=== PATIENT | female | born 1945 | race Caucasian/White ===

== ENCOUNTER 2020-01-27 12:12 | Inpatient (IN) | payer MEDICARE, OTHER ==
[~2020-01-27] VITALS: Ht 154.9 cm; Wt 59.3 kg
[~2020-01-27 12:12] MED LIST changes: -Allegra-D 24 H1 EACH PO; -Amoxicillin500 MG PO; -CARVEDILOL12.5 MG PO; -DYAZIDE 37.5-21 EACH PO; -FURO20 PO; -NORVASC10 MG PO; -POTA10T PO
[2020-01-27] MEDS ORDERED: CARVEDILOL12.5 MG PO (13:07)
[2020-01-27] MEDS ORDERED: FURO20 PO (13:07)
[2020-01-27] MEDS ORDERED: DYAZIDE 37.5-21 EACH PO (13:08)
[2020-01-27] MEDS ORDERED: POTA10T PO (13:09)
[2020-01-27] MEDS ORDERED: NORVASC10 MG PO (13:09)
[2020-01-27 13:21] LABS: Free Thyroxine 1.64 ng/dL (0.70-1.60); Magnesium, Blood 1.8 mg/dL (1.6-2.4)
[2020-01-27 13:23] LABS: Phosphorus, Blood 2.4 mg/dL (2.5-4.9); Thyroid Stimulating Hormone 0.659 uIU/mL (0.360-4.800)
[2020-01-27] MEDS ORDERED: Allegra-D 24 H1 EACH PO (13:33)
[2020-01-27 13:35] LABS: Source, Urine Clean Catch
[2020-01-27 13:37] LABS: Bilirubin, Urine Neg (Neg); Blood, Urine 1+ (Neg); Glucose Qualitative, Urine Neg (Neg); Ketones, Urine 3+ (Neg); Leukocyte Esterase, Urine 3+ (Neg); Nitrite, Urine Neg (Neg); Protein, Urine 1+ (Neg); Urobilinogen, Urine NORM (Normal)
[2020-01-27 13:43] LABS: Appearance, Urine Hazy (Clear); Color, Urine Yellow (P-Yellow)
[2020-01-27 13:45] LABS: Bacteria Many /hpf; Mucus Light (0-Heavy); Red Blood Cells, Urine 0-2 /hpf (0-2); Squamous Epithelial Cells Rare /hpf (Few); White Blood Cells, Urine 25-50 /hpf (0-5)
--- NOTE | 2020-01-27 18:24 | NUR ---
PT ADMIITED FROM ERD @1500 AND IS HERE FOR ALTERED MENTAL STATUS, PT TRANSFERRED VIA GURNEY. PT ALERT AND ORIENTED X2 WITH CONFUSION. HRR NSR AT 70'S NO CHEST PAIN REPORTED, LUNGS CLEAR BILAT SATS ABOVE 90% ON ROOMAIR. PT SBA VIA WALKER TO TRANSFER TO BSC, CONTINENT OF BOWEL AND BLADDER. ORDER FOR IV FLUID NSS COMPLETED WITH [address] VICK WAS CONSULTED, AGREED TO STOP NORMAL SALINE AND ADMINISTER 20 MEQ OF POTASSIUM IN 1000ML BAG INSTEAD, TO RUN AT 125MLS/HR. PT ON IV ABO FOR POSS UTI SEPSIS AWAITING FOR CULTURE RESULT. PT CURRENTLY IN BED CALL LIGHTS WITHIN REACH, WILL MONITOR.
--- NOTE | 2020-01-28 05:30 | NUR ---
END OF SHIFT SUMMARY NO ACUTE CHANGES THIS SHIFT. VSS. PT HAS BECOME MORE ALERT AND ORIENTED THIS SHIFT THE NIGHT PROGRESSED. THERE APPEARS TO POSSIBLY BE SOME UNDERLYING FORGETFULNESS HOWEVER. FLUIDS WITH KCL CONTINUE TO INFUSE PER EMAR. ORDERS RECEIVED AND ADMINISTERED FOR MELATIONIN FOR PT REPORTING INSOMNIA. POST ADMIN, PT HASBEEN RESTING T/O THE SHIFT. HAS NOT BEEN IMPULSIVE. WILL CONTINUE TO MONITOR UNTIL SHIFT CHANGE.
[2020-01-28 06:38] LABS: BASOPHILS ABSOLUTE AUTO 0.02 K/mm3 (0.00-0.23); BASOPHILS PERCENT AUTO 0 % (0-2); EOSINOPHILS ABSOLUTE AUTO 0.01 K/mm3 (0.00-0.68); EOSINOPHILS PERCENT AUTO 0 % (0-6); Hematocrit 38.1 % (33.0-51.0); Hemoglobin 13.9 g/dL (11.5-16.0); IMMATURE GRAN ABSOLUTE AUTO 0.03 K/mm3 (0.00-0.10); IMMATURE GRAN PERCENT AUTO 0 % (0-1); LYMPHOCYTES ABSOLUTE AUTO 2.74 K/mm3 (0.84-5.20); LYMPHOCYTES PERCENT AUTO 32 % (21-46); MONOCYTES PERCENT AUTO 14 % (4-13); Mean Corpuscular HGB 34.8 pg (26.0-34.0); Mean Corpuscular HGB Conc 36.5 g/dL (31.5-36.5); Mean Platelet Volume 9.9 fL (9.1-12.4); NEUTROPHILS ABSOLUTE AUTO 4.57 K/mm3 (1.96-9.15); NEUTROPHILS PERCENT AUTO 53 % (41-73); Platelet Count 228 K/mm3 (150-400); RDW Coefficient Variation 12.2 % (11.7-14.2); RDW Standard Deviation 42.4 fL (35.1-46.3); Red Blood Cell Count 3.99 M/mm3 (3.80-5.20); White Blood Cell Count 8.57 K/mm3 (4.00-11.30)
[2020-01-28 06:42] LABS: Mean Corpuscular Volume 96 fL (80-100)
[2020-01-28 07:05] LABS: Magnesium, Blood 2.1 mg/dL (1.6-2.4)
[2020-01-28 07:07] LABS: Albumin, Blood 3.3 g/dL (3.4-5.0); Anion Gap 8 mmol/L (6-16); Blood Urea Nitrogen 20 mg/dL (8-24); Bun/Creatinine Ratio 29.2 (12.0-20.0); CO2, Blood 24 mmol/L (21-32); Calcium, Blood 8.6 mg/dL (8.5-10.1); Chloride, Blood 98 mmol/L (98-108); Creatinine, Blood 0.69 mg/dL (0.40-1.00); Glomerular Filtration Rate >60 (60-); Glucose, Blood 82 mg/dL (70-99); Potassium, Blood 3.4 mmol/L (3.5-5.5)
[2020-01-28 07:18] LABS: Sodium, Blood 130 mmol/L (136-145)
--- NOTE | 2020-01-28 14:27 | NUR ---
DR VICK AT BEDSIDE. PT ANSWERING QUESTIONS APPROPRIATELY, DR VICK IS CHANGING PT STATUS TO MEDICAL WITHOUT TELE
--- NOTE | 2020-01-28 15:52 | NUR ---
PT WAS MAD MEDICAL STATUS WITHOU TELE PER DR VICK, PT TOLERATED AN APPROX 200 FOOT AMBULATION WITH USE OF FWW. PT ALERT, ORIENTED X3, ANSWERING QUESTIONS APPROPRIATELY. K+NS REMAINS INFUSING FROM THIS MORNING'S ADMIN WHICH IS WHY 1400 HAS NOT BEEN BEGAN.
--- NOTE | 2020-01-28 17:55 | NUR ---
REPORT TO VINCENZO LEORA ON MEDICAL FLOOR
--- NOTE | 2020-01-28 18:25 | NUR ---
PT'S SPOUSE UPDATED THAT PT HAS MOVED TO 360
--- NOTE | 2020-01-28 18:33 | NUR ---
TRANSFER NOTE/SHIFT SUMMARY- PT TRANSFERED TO MEDICAL FLOOR FROM PCU. PT ALERT AND ORIENTED X4. PT VOIDED A SMALL AMOUNT OF URINE AND HAD A HARD SMALL BM UPON ARRIVAL WELL INCONTINENT VOID IN HER ATTENDS. PT IS A 1PA WITH THE FWW TO THE BS BECAUSE OF THE IV. ONCE PT WAS BACK INTO BED SHE WANTED TO GET TO THE EOB SO SHE CAN BRUSH HER TEETH. PT CURRENTLY AT THE EOB WITH HER CALL LIGHT IN REACH. RECIEVED TELEPHONE REPORT FROM EVARISTO NICHOLS IN PCU. WILL PASS ON REPORT TO NIGHT RN AT SHIFT CVHANGE NOW.
--- NOTE | 2020-01-29 03:29 | NUR ---
SHIFT SUMMARY PATIENT HAD NO ACUTE CHANGES OBSERVED. AXOX 4 AND ONE ASSIST TO BSC. VSS/AFEBRILE. DENIES PAIN, SOB, AND N/V. PIV REMAINS INTACT. KCL INFUSING AT 125 mL/HR. [place]. FLUID RESTRICTION 1,500 mL. REPORTED INSOMNIA AND MELATONIN 3 MG GIVEN PER EMAR. PATIENT ABLE TO SLEEP PART OF THE SHIFT. COOPERATIVE WITH CARE. CALL LIGHT IN REACH. BED IN LOWEST POSITION. WILL CONTINUE TO MONITOR UNTIL DAY SHIFT NURSE ASSUMES CARE.
[2020-01-29 05:01] LABS: Albumin, Blood 3.1 g/dL (3.4-5.0); Anion Gap 5 mmol/L (6-16); Blood Urea Nitrogen 15 mg/dL (8-24); Bun/Creatinine Ratio 30.5 (12.0-20.0); CO2, Blood 23 mmol/L (21-32); Calcium, Blood 8.2 mg/dL (8.5-10.1); Chloride, Blood 104 mmol/L (98-108); Creatinine, Blood 0.49 mg/dL (0.40-1.00); Glomerular Filtration Rate >60 (60-); Glucose, Blood 96 mg/dL (70-99); Magnesium, Blood 1.7 mg/dL (1.6-2.4); Phosphorus, Blood 2.1 mg/dL (2.5-4.9); Potassium, Blood 3.9 mmol/L (3.5-5.5); Sodium, Blood 132 mmol/L (136-145)
[2020-01-29] MEDS ORDERED: Amoxicillin500 MG PO (14:10)
--- NOTE | 2020-01-29 15:26 | NUR ---
1500 PT DISCHARGED HOME VIA PERSONAL VEHICLE ACCOMPANIED AND DRIVEN BY . PT ESCORTED TO FACILITY ENTRANCE VIA W/C BY PLANT ENGINEER. IV REMOVED. D/C PAPERWORK REVIEWED WITH PT AND COPY PROVIDED. NEW RX CALLED IN TO [facility] PER PT REQUEST. NO NEW CHANGES OR CONCERNS.
== END 2020-01-29 15:00 | disposition home or self-care (01) | DRG 641 ==
LOC: ER 12:12 → PCU 13:41 → MEDS 01-28 18:08
PROVIDERS: Emergency Medicine; ADMIT Internal Medicine Gastroenterology
DX: E87.1 Hypo-osmolality and hyponatremia (principal); N39.0 Urinary tract infection, site not specified; T50.1X5A Adverse effect of loop [high-ceiling] diuretics, initial encounter; B95.2 Enterococcus as the cause of diseases classified elsewhere; Z91.81 History of falling; E87.6 Hypokalemia; I10 Essential (primary) hypertension
CPT/HCPCS: 36415; 71046; 80069; 81001; 82533; 83735; 83880; 84100; 84300; 84439; 84443; 85025; 87077; 87086; 87186; 93005; 93010; 96360; 96361; 99285-25; A9270; J0696; J3480; J7030; P9612

== ENCOUNTER → 2020-01-27 | Outpatient (CLI) | payer MEDICARE, OTHER ==
[~2020-01-27] MED LIST: ALLEGRA D; ASCO500 PO; Allegra-D 24 H1 EACH PO; Amoxicillin500 MG PO; Aspir 8181 MG PO; CALCIT950; CARVEDILOL12.5 MG PO; CIPRO500 MG PO; DYAZIDE 37.5-21 EACH PO; Daily Multiple1 EACH PO; ESTRTP; FISH1000; FURO20 PO; Flagyl500 MG PO; HYDRO EYE; LISINOPRIL; NORVASC10 MG PO; POTA10T PO; SOLI5; SUPER B COMPLEX; TRIHYD5075; TRIHYD5075 PO; VITAMIN D31000 UNI1 PO; ZESTRIL40 M2 PO; Zofran8 MG PO
[2020-01-27 11:24] LABS: Blood Urea Nitrogen 15 mg/dL (8-24); Bun/Creatinine Ratio 19.2 (12.0-20.0); CO2, Blood 27 mmol/L (21-32); Calcium, Blood 9.5 mg/dL (8.5-10.1); Chloride, Blood 77 mmol/L (98-108); Creatinine, Blood 0.78 mg/dL (0.40-1.00); Glomerular Filtration Rate >60 (60-); Glucose, Blood 139 mg/dL (70-99)
[2020-01-27 11:29] LABS: Anion Gap 11 mmol/L (6-16); Troponin I <0.017 ng/mL (0.000-0.040)
[2020-01-27 11:31] LABS: Sodium, Blood 115 mmol/L (136-145)
[2020-01-27 12:11] LABS: BASOPHILS ABSOLUTE AUTO 0.01 K/mm3 (0.00-0.23); BASOPHILS PERCENT AUTO 0 % (0-2); EOSINOPHILS ABSOLUTE AUTO 0.01 K/mm3 (0.00-0.68); EOSINOPHILS PERCENT AUTO 0 % (0-6); Hemoglobin 16.5 g/dL (11.5-16.0); IMMATURE GRAN ABSOLUTE AUTO 0.05 K/mm3 (0.00-0.10); IMMATURE GRAN PERCENT AUTO 1 % (0-1); LYMPHOCYTES ABSOLUTE AUTO 1.98 K/mm3 (0.84-5.20); LYMPHOCYTES PERCENT AUTO 18 % (21-46); MONOCYTES ABSOLUTE AUTO 1.12 K/mm3 (0.16-1.47); MONOCYTES PERCENT AUTO 10 % (4-13); Mean Corpuscular HGB 34.7 pg (26.0-34.0); Mean Corpuscular HGB Conc 37.5 g/dL (31.5-36.5); Mean Corpuscular Volume 93 fL (80-100); Mean Platelet Volume 9.5 fL (9.1-12.4); NEUTROPHILS ABSOLUTE AUTO 7.75 K/mm3 (1.96-9.15); NEUTROPHILS PERCENT AUTO 71 % (41-73); Platelet Count 289 K/mm3 (150-400); RDW Coefficient Variation 11.6 % (11.7-14.2); RDW Standard Deviation 39.6 fL (35.1-46.3); Red Blood Cell Count 4.75 M/mm3 (3.80-5.20); White Blood Cell Count 10.92 K/mm3 (4.00-11.30)
== END | disposition home or self-care (01) ==
LOC: LAB EV 11:03 → LAB SHORT 11:03
PROVIDERS: Physician Assistant Surgical
DX: R53.83 Other fatigue (principal)
CPT/HCPCS: 80048; 84484; 85025

== ENCOUNTER → 2020-03-08 | Outpatient (CLI) | payer MEDICARE, OTHER ==
[~2020-03-08] MED LIST changes: +Allegra-D 24 H1 EACH PO; +Amoxicillin500 MG PO; +CARVEDILOL12.5 MG PO; +DYAZIDE 37.5-21 EACH PO; +FURO20 PO; +NORVASC10 MG PO; +POTA10T PO
== END | disposition home or self-care (01) ==
LOC: LAB SHORT 14:38 → LAB 14:38
DX: N39.0 Urinary tract infection, site not specified (principal)
CPT/HCPCS: 87077; 87086; 87186

== ENCOUNTER → 2021-02-27 | Outpatient (CLI) | payer MEDICARE, OTHER ==
[2021-02-27 11:51] LABS: Source, Urine Clean Catch
[2021-02-27 19:05] LABS: Bilirubin, Urine Neg (Neg); Blood, Urine Neg (Neg); Glucose Qualitative, Urine Neg (Neg); Ketones, Urine Neg (Neg); Leukocyte Esterase, Urine Neg (Neg); Nitrite, Urine Pos (Neg); Protein, Urine Neg (Neg); Urobilinogen, Urine NORM (Normal)
[2021-02-27 19:11] LABS: Appearance, Urine Hazy (Clear); Color, Urine Yellow (P-Yellow)
[2021-02-27 19:13] LABS: Red Blood Cells, Urine 0-2 /hpf (0-2)
[2021-02-27 19:14] LABS: Bacteria Many /hpf; Squamous Epithelial Cells Rare /hpf (Few)
== END | disposition home or self-care (01) ==
LOC: LAB SHORT 09:42
PROVIDERS: Nurse Practitioner Family
DX: E78.2 Mixed hyperlipidemia (principal); I10 Essential (primary) hypertension
CPT/HCPCS: 81001

== ENCOUNTER → 2021-03-19 | Outpatient (CLI) | payer MEDICARE, OTHER ==
[2021-03-19 11:22] LABS: Source, Urine Clean Catch
[2021-03-19 12:45] LABS: Appearance, Urine Clear (Clear); Bilirubin, Urine Neg (Neg); Blood, Urine Neg (Neg); Color, Urine Yellow (P-Yellow); Glucose Qualitative, Urine Neg (Neg); Ketones, Urine Neg (Neg); Leukocyte Esterase, Urine Neg (Neg); Nitrite, Urine Pos (Neg); Protein, Urine Neg (Neg); Urobilinogen, Urine NORM (Normal)
[2021-03-19 12:52] LABS: Red Blood Cells, Urine 0-2 /hpf (0-2)
[2021-03-19 12:53] LABS: Bacteria Many /hpf; Squamous Epithelial Cells Few /hpf (Few)
== END | disposition home or self-care (01) ==
LOC: LAB 08:50 → LAB SHORT 08:50
PROVIDERS: Nurse Practitioner Family
DX: R73.09 Other abnormal glucose (principal); R82.998 Other abnormal findings in urine
CPT/HCPCS: 81001; 87077; 87086; 87186

== ENCOUNTER → 2021-03-29 | Outpatient (CLI) | payer MEDICARE, OTHER ==
[2021-03-29 10:04] LABS: Source, Urine Clean Catch
[2021-03-29 14:04] LABS: Bilirubin, Urine Neg (Neg); Blood, Urine Neg (Neg); Glucose Qualitative, Urine Neg (Neg); Ketones, Urine Neg (Neg); Leukocyte Esterase, Urine Neg (Neg); Nitrite, Urine Neg (Neg); Protein, Urine Neg (Neg); Urobilinogen, Urine NORM (Normal)
[2021-03-29 14:11] LABS: Appearance, Urine Clear (Clear); Color, Urine Pale Yellow (P-Yellow)
== END | disposition home or self-care (01) ==
LOC: LAB 10:02 → LAB SHORT 10:02
PROVIDERS: Nurse Practitioner Family
DX: N39.0 Urinary tract infection, site not specified (principal)
CPT/HCPCS: 81003

== ENCOUNTER 2022-02-15 02:59 | Observation (INO) | payer MEDICARE ==
[~2022-02-15] VITALS: Ht 154.9 cm; Wt 60.2 kg
[2022-02-15 03:29] LABS: BASOPHILS ABSOLUTE AUTO 0.04 K/mm3 (0.00-0.23); BASOPHILS PERCENT AUTO 1 % (0-2); EOSINOPHILS ABSOLUTE AUTO 0.22 K/mm3 (0.00-0.68); EOSINOPHILS PERCENT AUTO 3 % (0-6); Hematocrit 33.4 % (33.0-51.0); Hemoglobin 11.8 g/dL (11.5-16.0); IMMATURE GRAN ABSOLUTE AUTO 0.02 K/mm3 (0.00-0.10); IMMATURE GRAN PERCENT AUTO 0 % (0-1); LYMPHOCYTES ABSOLUTE AUTO 3.18 K/mm3 (0.84-5.20); LYMPHOCYTES PERCENT AUTO 36 % (21-46); MONOCYTES ABSOLUTE AUTO 0.78 K/mm3 (0.16-1.47); MONOCYTES PERCENT AUTO 9 % (4-13); Mean Corpuscular HGB 33.7 pg (26.0-34.0); Mean Corpuscular HGB Conc 35.3 g/dL (31.5-36.5); Mean Corpuscular Volume 95 fL (80-100); Mean Platelet Volume 9.9 fL (9.1-12.4); NEUTROPHILS ABSOLUTE AUTO 4.55 K/mm3 (1.96-9.15); NEUTROPHILS PERCENT AUTO 52 % (41-73); Platelet Count 244 K/mm3 (150-400); RDW Standard Deviation 41.9 fL (35.1-46.3); White Blood Cell Count 8.79 K/mm3 (4.00-11.30)
[2022-02-15 03:54] LABS: Alanine Aminotransfer (ALT/SGP 16 U/L (12-78); Albumin, Blood 3.5 g/dL (3.4-5.0); Albumin/Globulin Ratio 1.1 (0.8-1.8); Alk Phos 95 U/L (50-136); Anion Gap 7 mmol/L (6-16); Aspartate Aminotrans (AST/SGOT 17 U/L (12-37); Bilirubin, Total 0.3 mg/dL (0.1-1.0); Blood Urea Nitrogen 21 mg/dL (8-24); Bun/Creatinine Ratio 27.5 (12.0-20.0); CO2, Blood 27 mmol/L (21-32); Chloride, Blood 95 mmol/L (98-108); Creatinine, Blood 0.76 mg/dL (0.40-1.00); Globulin, Blood 3.3 g/dL (2.2-4.0); Glomerular Filtration Rate >60 (60-); Glucose, Blood 111 mg/dL (70-99); Potassium, Blood 3.9 mmol/L (3.5-5.5); Sodium, Blood 129 mmol/L (136-145); Total Protein, Blood 6.8 g/dL (6.4-8.2)
--- NOTE | 2022-02-15 16:37 | NUR ---
SHIFT SUMMARY PATIENT ADMITTED FROM ER AT 0730. PATIENT SETTLED INTO ROOM. PATIENT DENIES CHEST PAIN, NAUSEA, AND SHORTNESS OF BREATH. PATIENT HAD AN ECHO TODAY. PATIENT ALSO HAD A STRESS TEST. PATIENT IS A SBA WITH A FWW. PATIENT USES A FWW AT BASELINE. PATIENT VISITED MOST OF SHIFT. PATIENT IS VERY [place]. PATIENT IS EATING AND DRINKING WELL, WHEN ABLE TO DUE TO STRESS TEST. PATIENT IS PLEASANT AND COOPERATIVE WITH CARE.
--- NOTE | 2022-02-16 04:47 | NUR ---
SHIFT SUMMARY: A/OX4, DIFFICULTY HEARING, STANDBY ASSIST WITH WALKER WHEN MOBILIZING. INDEPENDENT REPOSITIONING AND TURNING IN BED. PT REPORTED GI DISCOMFORT AND ONSET OF NAUSEA DURING THE NIGHT RELIEVED WITH ZOFRAN. NO CHEST PAIN REPORTED. BED ALARM ACTIVATED, BED IN LOW POSITION, CALL GREEN IN REACH, BELONGINGS IN REACH.
[2022-02-16] MEDS ORDERED: MELA3 PO (12:35)
[2022-02-16] MEDS ORDERED: DYAZIDE 37.5-21 EACH PO (12:36)
--- NOTE | 2022-02-16 13:53 | NUR ---
DISCHARGE PATIENT TRANSPORTED VIA WHEELCHAIR TO PRIVATE VEHICLE. DISCHARGE INSTRUCTIONS EXPLAINED TO PATIENT. PATIENT STATED UNDERSTANDING. PACKET SENT WITH PATIENT. BELONGINGS SENT WITH PATIENT. IV REMOVED WITHOUT DIFFICULTY. TELE REMOVED WITOUT DIFFICULTY. MEDICATIONS FAXED TO PREFERRED PHARMACY. [facility] TO CALL PATIENT TO SCHEDULE FOLLOW UP APPOINTMENT.
== END 2022-02-16 13:11 | disposition home or self-care (01) ==
LOC: ER 02:59 → MEDS 03:00 → PCU 03:00 → MEDS 03:00 → ER 03:00 → MEDS 07:41
PROVIDERS: Student in an Organized Health Care Education/Training Program; ADMIT Internal Medicine
DX: R07.9 Chest pain, unspecified (principal); I10 Essential (primary) hypertension; I25.2 Old myocardial infarction; E87.1 Hypo-osmolality and hyponatremia
CPT/HCPCS: 36415; 71046; 78452; 80053; 83690; 84484; 85025; 93005; 93010; 93017; 93306; A9270; A9500; J0706; J2405; J2785

== ENCOUNTER 2022-06-12 08:45 | Day surgery (SDC) | payer MEDICARE ==
[~2022-06-12] VITALS: Ht 149.9 cm; Wt 56.9 kg
[~2022-06-12 08:45] MED LIST changes: +MELA3 PO
--- NOTE | 2022-06-12 10:00 | NUR ---
06/12/22 1000 Marizol Oglesby PT WITH APPROXIMATELY 3 INCH PURPLE BRUISE ON UPPER LEFT BUTTOCK CHEEK. PT STATES SHE FALLS ALL THE TIME. MULTIPLE SMALL PURPLE BRUISES NOTED ON LEFT FOREARM AND LEFT HAND.
== END 2022-06-12 10:40 | disposition home or self-care (01) ==
LOC: ORSCSDS 08:45
PROVIDERS: Internal Medicine Gastroenterology
PROC: 0DBK8ZX Excision of Ascending Colon, Via Natural or Artificial Opening Endoscopic, Diagnostic (ICD-10-PCS; principal; 2022-06-12 09:30)
PROC: 0DBE8ZX Excision of Large Intestine, Via Natural or Artificial Opening Endoscopic, Diagnostic (ICD-10-PCS; principal; 2022-06-12 09:30)
DX: R19.4 Change in bowel habit (principal); R10.9 Unspecified abdominal pain; R11.0 Nausea; Z83.71 Family history of colonic polyps; D12.2 Benign neoplasm of ascending colon; K57.30 Diverticulosis of large intestine without perforation or abscess without bleeding; K64.8 Other hemorrhoids; I10 Essential (primary) hypertension; E78.5 Hyperlipidemia, unspecified; F41.9 Anxiety disorder, unspecified; Z79.899 Other long term (current) drug therapy
CPT/HCPCS: 88305; J2704; J7120

== ENCOUNTER 2025-04-28 15:36 | Inpatient (IN) | payer MEDICARE ==
[~2025-04-28] VITALS: Ht 152.4 cm; Wt 55.7 kg
[2025-04-28] MEDS ORDERED: AMLO10 PO (19:10)
[2025-04-28] MEDS ORDERED: LISI20 PO (19:10)
[2025-04-28] MEDS ORDERED: DYAZIDE 37.5-21 EACH PO (19:11)
[2025-04-28] MEDS ORDERED: PROLIA60 MG/1 ML SQ (19:11)
[2025-04-28 19:12] LABS: Albumin, Blood 3.3 g/dL (3.4-5.0); Albumin/Globulin Ratio 0.9 (0.8-1.8); Bilirubin, Total 0.7 mg/dL (0.1-1.0); Bun/Creatinine Ratio 29.2 (12.0-20.0); Calcium, Blood 9.8 mg/dL (8.5-10.1); Creatinine, Blood 1.06 mg/dL (0.40-1.00); Globulin, Blood 3.6 g/dL (2.2-4.0); Potassium, Blood 3.8 mmol/L (3.5-5.5); Total Protein, Blood 6.9 g/dL (6.4-8.2)
[2025-04-28] MEDS ORDERED: ASCO500 PO (19:12)
[2025-04-28] MEDS ORDERED: BIOFREEZE85 GM (19:12)
[2025-04-28] MEDS ORDERED: MULTIPLE VITAM1 EACH PO (19:12)
[2025-04-28] MEDS ORDERED: VITAMIN D325 MC3 PO (19:13)
[2025-04-28] MEDS ORDERED: Carvedilol3.125 MG (19:13)
[2025-04-28] MEDS ORDERED: Carvedilol12.5 MG PO (19:14)
[2025-04-28 19:19] LABS: BASOPHILS ABSOLUTE AUTO 0.03 K/mm3 (0.00-0.23); BASOPHILS PERCENT AUTO 0 % (0-2); EOSINOPHILS ABSOLUTE AUTO 0.12 K/mm3 (0.00-0.68); EOSINOPHILS PERCENT AUTO 1 % (0-6); Hematocrit 33.7 % (33.0-51.0); Hemoglobin 10.9 g/dL (11.5-16.0); IMMATURE GRAN ABSOLUTE AUTO 0.08 K/mm3 (0.00-0.10); IMMATURE GRAN PERCENT AUTO 0 % (0-1); LYMPHOCYTES ABSOLUTE AUTO 1.56 K/mm3 (0.84-5.20); LYMPHOCYTES PERCENT AUTO 9 % (21-46); MONOCYTES ABSOLUTE AUTO 1.16 K/mm3 (0.16-1.47); MONOCYTES PERCENT AUTO 6 % (4-13); Mean Corpuscular HGB 32.2 pg (26.0-34.0); Mean Corpuscular HGB Conc 32.3 g/dL (31.5-36.5); Mean Corpuscular Volume 99 fL (80-100); Mean Platelet Volume 10.5 fL (9.1-12.4); NEUTROPHILS ABSOLUTE AUTO 15.32 K/mm3 (1.96-9.15); NEUTROPHILS PERCENT AUTO 84 % (41-73); Platelet Count 280 K/mm3 (150-400); RDW Coefficient Variation 14.6 % (11.7-14.2); RDW Standard Deviation 53.1 fL (35.1-46.3); Red Blood Cell Count 3.39 M/mm3 (3.80-5.20); White Blood Cell Count 18.27 K/mm3 (4.00-11.30)
[2025-04-28] MEDS ORDERED: Furosemide 10 MG/ML 4ML Vial IV ONE (21:30)
[2025-04-28] MEDS ORDERED: CefTRIAXone Sodium 1,000 MG in NS 100 ML IV ONE (22:50)
[2025-04-28] MEDS ORDERED: Doxycycline Hyclate 100 MG in Dextrose 5% 250 ML IV ONE (22:50)
[2025-04-28] MEDS ORDERED: Ondansetron HCl 2 MG / ML 2ML Vial IV PRN (23:20)
[2025-04-29 01:06] LABS: Source, Urine Clean Catch
[2025-04-29 01:13] LABS: Bilirubin, Urine Neg (Neg); Blood, Urine Neg (Neg); Glucose Qualitative, Urine Neg (Neg); Ketones, Urine Neg (Neg); Leukocyte Esterase, Urine Neg (Neg); Nitrite, Urine Neg (Neg); Protein, Urine Neg (Neg); Urobilinogen, Urine NORM (Normal)
[2025-04-29 01:29] LABS: Appearance, Urine Clear (Clear); Color, Urine Yellow (P-Yellow)
[2025-04-29 01:35] VITALS: BP 111/74
[2025-04-29 04:23] VITALS: BP 115/66
[2025-04-29] MEDS ORDERED: FentaNYL Citrate 50 MCG/ML 2 ML Injection IV PRN (05:00)
[2025-04-29 08:16] VITALS: BP 111/64
[2025-04-29] MEDS ORDERED: Furosemide 10 MG/ML 4ML Vial IV SCH (09:00)
[2025-04-29 09:03] LABS: BASOPHILS ABSOLUTE AUTO 0.02 K/mm3 (0.00-0.23); BASOPHILS PERCENT AUTO 0 % (0-2); EOSINOPHILS ABSOLUTE AUTO 0.12 K/mm3 (0.00-0.68); EOSINOPHILS PERCENT AUTO 1 % (0-6); Hematocrit 29.5 % (33.0-51.0); IMMATURE GRAN ABSOLUTE AUTO 0.05 K/mm3 (0.00-0.10); IMMATURE GRAN PERCENT AUTO 0 % (0-1); LYMPHOCYTES ABSOLUTE AUTO 1.53 K/mm3 (0.84-5.20); LYMPHOCYTES PERCENT AUTO 10 % (21-46); MONOCYTES PERCENT AUTO 5 % (4-13); Mean Corpuscular HGB 32.5 pg (26.0-34.0); Mean Corpuscular HGB Conc 33.9 g/dL (31.5-36.5); Mean Corpuscular Volume 96 fL (80-100); Mean Platelet Volume 10.2 fL (9.1-12.4); NEUTROPHILS ABSOLUTE AUTO 12.28 K/mm3 (1.96-9.15); NEUTROPHILS PERCENT AUTO 83 % (41-73); Platelet Count 269 K/mm3 (150-400); RDW Coefficient Variation 14.5 % (11.7-14.2); RDW Standard Deviation 50.4 fL (35.1-46.3); Red Blood Cell Count 3.08 M/mm3 (3.80-5.20)
[2025-04-29] MEDS ORDERED: Polyethylene Glycol 3350 17 gm PO SCH (09:05)
[2025-04-29 09:29] LABS: Albumin, Blood 3.1 g/dL (3.4-5.0); Albumin/Globulin Ratio 0.8 (0.8-1.8); Bilirubin, Total 0.6 mg/dL (0.1-1.0); Bun/Creatinine Ratio 37.4 (12.0-20.0); Calcium, Blood 9.2 mg/dL (8.5-10.1); Creatinine, Blood 0.75 mg/dL (0.40-1.00); Globulin, Blood 3.8 g/dL (2.2-4.0); Potassium, Blood 2.9 mmol/L (3.5-5.5); Total Protein, Blood 6.9 g/dL (6.4-8.2)
[2025-04-29 10:02] LABS: Adenovirus F 40/41 Not Detected (NOT DETECT); Astrovirus Not Detected (NOT DETECT); Campylobacter Sp Not Detected (NOT DETECT); Cryptosporidium Not Detected (NOT DETECT); Cyclospora Cayetanensis Not Detected (NOT DETECT); E. Coli O157 Not Detected (NOT DETECT); Entamoeba Histolytica Not Detected (NOT DETECT); Enteroaggregative E. coli-EAEC Not Detected (NOT DETECT); Enteropathogenic E. coli-EPEC Not Detected (NOT DETECT); Enterotoxigenic E. coli-ETEC Not Detected (NOT DETECT); Giardia Lamblia Not Detected (NOT DETECT); Norovirus GI/GII Not Detected (NOT DETECT); Plesiomonas Shigelloides Not Detected (NOT DETECT); Rotavirus A Not Detected (NOT DETECT); Salmonella Sp Not Detected (NOT DETECT); Sapovirus Not Detected (NOT DETECT); Shiga Toxin-prod E. coli-STEC Not Detected (NOT DETECT); Shigella/Enteroin E. coli-EIEC Not Detected (NOT DETECT); Vibrio Cholerae Not Detected (NOT DETECT); Vibrio Sp Not Detected (NOT DETECT); Yersinia Enterocolitica Not Detected (NOT DETECT)
[2025-04-29] MEDS ORDERED: CALCIUM 1,0001 EAC1 PO (13:41)
[2025-04-29] MEDS ORDERED: ACETAMINOPHEN500 MG PO (13:43)
[2025-04-29] MEDS ORDERED: Vitamin B Comple1 EA PO (13:45)
[2025-04-29] MEDS ORDERED: NS 250 ML IV PRN (14:00)
[2025-04-29] MEDS ORDERED: Potassium Chloride 20 MEQ in NS 90 ML IV SCH (14:30)
[2025-04-29 15:51] VITALS: BP 123/66
--- NOTE | 2025-04-29 18:23 | NUR ---
SHIFT SUMMARY PT AOX3/4, COOPERATIVE, ABLE TO MAKE NEEDS KNOWN. PT IS VERY [place]. TRANSFERS VIA 1 PERSON ASSIST TO COMMODE FOR VOIDING. PT IS HYPERFIXATED ON HAVING BMS, IN PT FEELS HER STOMACH IS FULL OF FECAL MATTER THAT CANNOT GET OUT. BOWEL MEDS IN PLACE. CONTACTED MD ABOUT K LEVELS, ORDERS PLACE. BED IN LOWEST POSITIN, CALL LIGHT WITHIN REACH.
[2025-04-29 20:11] VITALS: BP 108/76
[2025-04-30] VITALS (7 sets, daily range): BP systolic 116–129; BP diastolic 57–79
--- NOTE | 2025-04-30 03:22 | NUR ---
AGENT BROKER SUMMARY: Pt A&O X3. DEERING. MAKES NEEDS KNOWN. TELE IN PLACE: AFIB 86. DENIES CHEST PAIN / CHEST PRESSURE. FIXATED ON HAVING BM, WITH LITTLE TO NO RESULTS. GI PANEL NEGATIVE. C/O URINARY URGENCY, NEGATIVE FOR UTI. NO ACUTE EVENTS T/O SHIFT. PT 1 PERSON PIVOT TRANSFER FWW TO [facility] [place] 1[place]2 PERSON ASSIST WITH BED MOBILITY. PT MEDICATED X1 FOR ABD PAIN AND NAUSEA PER EMAR ORDERS; EFFECTIVE. TURN SCHEDULE IN PLACE. BED IN LOWEST POSITION. CALL LIGHT IN REACH. CARES ONGOING ORDERED.
[2025-04-30 08:14] LABS: BASOPHILS ABSOLUTE AUTO 0.02 K/mm3 (0.00-0.23); BASOPHILS PERCENT AUTO 0 % (0-2); EOSINOPHILS ABSOLUTE AUTO 0.28 K/mm3 (0.00-0.68); EOSINOPHILS PERCENT AUTO 3 % (0-6); Hematocrit 30.3 % (33.0-51.0); Hemoglobin 10.1 g/dL (11.5-16.0); IMMATURE GRAN ABSOLUTE AUTO 0.05 K/mm3 (0.00-0.10); IMMATURE GRAN PERCENT AUTO 1 % (0-1); LYMPHOCYTES ABSOLUTE AUTO 1.91 K/mm3 (0.84-5.20); LYMPHOCYTES PERCENT AUTO 19 % (21-46); MONOCYTES ABSOLUTE AUTO 0.77 K/mm3 (0.16-1.47); MONOCYTES PERCENT AUTO 8 % (4-13); Mean Corpuscular HGB 32.4 pg (26.0-34.0); Mean Corpuscular HGB Conc 33.3 g/dL (31.5-36.5); Mean Corpuscular Volume 97 fL (80-100); NEUTROPHILS PERCENT AUTO 71 % (41-73); Platelet Count 287 K/mm3 (150-400); RDW Coefficient Variation 14.3 % (11.7-14.2); RDW Standard Deviation 50.7 fL (35.1-46.3); Red Blood Cell Count 3.12 M/mm3 (3.80-5.20); White Blood Cell Count 10.33 K/mm3 (4.00-11.30)
[2025-04-30 08:40] LABS: Albumin, Blood 2.9 g/dL (3.4-5.0); Albumin/Globulin Ratio 0.8 (0.8-1.8); Bilirubin, Total 0.5 mg/dL (0.1-1.0); Bun/Creatinine Ratio 40.5 (12.0-20.0); Calcium, Blood 9.7 mg/dL (8.5-10.1); Creatinine, Blood 0.72 mg/dL (0.40-1.00); Globulin, Blood 3.6 g/dL (2.2-4.0); Potassium, Blood 3.7 mmol/L (3.5-5.5); Total Protein, Blood 6.5 g/dL (6.4-8.2)
[2025-04-30] MEDS ORDERED: Docusate Sodium 100 MG Cap PO SCH (09:00)
[2025-04-30] MEDS ORDERED: Sennosides 8.6 MG Tab PO SCH (09:00)
--- NOTE | 2025-04-30 17:02 | NUR ---
EDUARDO IS A&0 X4. PT HASN'T BEEN IMPULSIVE, AND USED CALL LIGHT APPRORPIATELY. CALLS FREQUENTLY FOR ASSISTANCE TO USE THE BED SIDE COMMODE. SMALL FREQUENT VOIDS, 75 ML - 100 MLS OF PALE YELLOW URINE. DENIES PAIN AND REQUESTS NO ANALGESIC PRN'S THIS SHIFT. PT DID RECEIVE PRN ZOFRAN FOR NAUSEA THIS MORNING, WHICH PRODUCED RELIEF. CHIP MUCKER REPORTED AFIB IN THE 90'S. PT IS [place]. ARTHRITIC AND PAINFUL TO RIGHT KNEE, RIGHT LOWER EXTREMITY. ROOM AIR.
[2025-05-01 02:27] VITALS: BP 132/80
--- NOTE | 2025-05-01 02:58 | NUR ---
RN OBTAINED TELEPHONE ORDER FROM DR. MCELROY TO GIVE PATIENT 1 MG OF IV DILAUDID ONCE. RN INFORMED PHYSICIAN THAT WHEN RN TRIED TO ORDER MEDICATION, AN ALERT CAME UP STATING THAT PATIENT HAS AN ALLERGY TO MORPHINE. RN INFORMED DR. MCELROY OF THE MORPHINE ALLERGY AND WARNING THAT CAME UP. PER DR. MCELROY "IT IS OKAY TO GIVE IT".
[2025-05-01] MEDS ORDERED: HYDROmorphone HCl/Pf 1MG SYR IV ONE (03:00)
--- NOTE | 2025-05-01 03:51 | NUR ---
PT IS ALERT AND ORIENTED X4 AND HARD OF HEARING. PT GETS UP TO [facility] [place] WITH 1 ASSIST AND A WALKER. MULTIPLE SMALL VOIDS THROUGH OUT THE NIGHT. PT COMPLAINED OF SHARP ABDOMINAL PAIN. FENTANYL WAS GIVEN BUT DID NOT PROVIDE RELIEF. ORDER FOR DILAUDID OBTAINED FROM DR. MCELROY. ALLERY AND ALLERGY WARNING TRIGGER WERE BOTH DISCUSSED WITH DR. MCELROY (SEE PRIOR NOTE). PER DR. MCELROY "IT IS OKAY TO GIVE THE DILAUDID". PT TOLERATED THE DILAUDID WELL AND IT PROVIDED SOME RELIEF. TELE MONITOR IS IN PLACE- RUNNING AFIB IN THE 80'S. PT DEMONSTRATED PROPER USE OF THE CALL LIGHT AND ORIENTED TO HER OWN ABILITY. BED IN LOCKED AND LOW POSITION. CALL LIGHT WITHIN REACH.
[2025-05-01 07:11] VITALS: BP 111/69
[2025-05-01 10:01] LABS: BASOPHILS ABSOLUTE AUTO 0.02 K/mm3 (0.00-0.23); BASOPHILS PERCENT AUTO 0 % (0-2); EOSINOPHILS PERCENT AUTO 1 % (0-6); Hematocrit 34.4 % (33.0-51.0); Hemoglobin 11.5 g/dL (11.5-16.0); IMMATURE GRAN ABSOLUTE AUTO 0.06 K/mm3 (0.00-0.10); IMMATURE GRAN PERCENT AUTO 1 % (0-1); LYMPHOCYTES ABSOLUTE AUTO 1.69 K/mm3 (0.84-5.20); LYMPHOCYTES PERCENT AUTO 17 % (21-46); MONOCYTES ABSOLUTE AUTO 0.63 K/mm3 (0.16-1.47); MONOCYTES PERCENT AUTO 6 % (4-13); Mean Corpuscular HGB Conc 33.4 g/dL (31.5-36.5); Mean Corpuscular Volume 96 fL (80-100); Mean Platelet Volume 9.9 fL (9.1-12.4); NEUTROPHILS ABSOLUTE AUTO 7.45 K/mm3 (1.96-9.15); NEUTROPHILS PERCENT AUTO 75 % (41-73); Platelet Count 324 K/mm3 (150-400); RDW Coefficient Variation 14.1 % (11.7-14.2); RDW Standard Deviation 49.4 fL (35.1-46.3); Red Blood Cell Count 3.59 M/mm3 (3.80-5.20); White Blood Cell Count 9.95 K/mm3 (4.00-11.30)
[2025-05-01 10:24] LABS: Albumin, Blood 3.3 g/dL (3.4-5.0); Albumin/Globulin Ratio 0.8 (0.8-1.8); Bilirubin, Total 0.5 mg/dL (0.1-1.0); Calcium, Blood 10.1 mg/dL (8.5-10.1); Creatinine, Blood 0.8 mg/dL (0.40-1.00); Globulin, Blood 3.9 g/dL (2.2-4.0); Potassium, Blood 3.9 mmol/L (3.5-5.5); Total Protein, Blood 7.2 g/dL (6.4-8.2)
[2025-05-01 15:58] VITALS: BP 121/69
--- NOTE | 2025-05-01 16:59 | NUR ---
SHIFT SUMMARY NO ACUTE CHANGES, A/Ox4, ABLE TO MAKE NEEDS KNOWN AND IS USING CALL LIGHT APPROPRIATELY. PT REPORTS ABD CRAMPING/PAIN - FEELS NEED TO HAVE BM BUT ALSO STATES SHE IS BARELY EATING DUE TO NAUSEA THE LAST COUPLE DAYS. DENIES NAUSEA TODAY. MEDICATED x1 FOR ABD PAIN, BOWEL CARE ADMINISTERED. PROVIDED PRUNE JUICE. VITALS STABLE. PT UP TO BSC WITH SBA AND FWW. PT CURRENTLY RESTING IN BED WITH BED IN LOWEST POSITION AND CALL LIGHT WITHIN REACH. POOR APPETITE, OKAY FLUID INTAKE.
[2025-05-01] MEDS ORDERED: Carvedilol 6.25 MG Tab PO SCH (17:00)
[2025-05-01 19:20] VITALS: BP 115/67
--- NOTE | 2025-05-01 19:37 | NUR ---
PALLIATIVE CARE NOTE: FOUND POLST ON FILE DNR/COMFORT MEASURES ONLY. MET WITH PT TO DISCUSS CODE STATUS. EXPLAINED DNR VS FULL CODE. PT WISHES TO REMAIN FULL CODE. RISKS VS BENEFITS EXPLAINED AND PT CONTINUED TO WANT TO REMAIN FULL CODE.
[2025-05-01] MEDS ORDERED: Metoprolol Tartrate 25 MG Tab PO SCH (21:00)
[2025-05-01 23:42] VITALS: BP 117/67
--- NOTE | 2025-05-02 03:03 | NUR ---
MARKETING SYSTEMS ANALYST SUMMARY VSS. ALERT AND OREINTED BUT QUITE HARD OF HEARING. ADMIT DX IS CHF, MED TELE AFIB WITH BBB IN THE 60'S. ASYMPTOMATIC. VERBALIZED ABD DISCOMFORT AND OCCASIONAL NAUSEA. HAS RECEIVED IV FENTANYL AND ZOFRAN FOR SAID COMPLAINTS - SEE MAR FOR DETAILS. UP WITH ASSIST TO BEDSIDE COMMODE. OTHERWISE HAS BEEN RESTING QUIETLY WITH FEW INTERRUPTIONS. CALL LIGHT IN REACH, RAILS UP X 2 AND BED IN LOW POSITON FOR SAFETY.
[2025-05-02 04:24] VITALS: BP 126/71
[2025-05-02 05:57] LABS: Bun/Creatinine Ratio 27.8 (12.0-20.0); Calcium, Blood 9.2 mg/dL (8.5-10.1); Creatinine, Blood 0.68 mg/dL (0.40-1.00); Potassium, Blood 3.3 mmol/L (3.5-5.5)
[2025-05-02 07:39] VITALS: BP 128/65
[2025-05-02] MEDS ORDERED: Calcium 500 MG/Vit D 200 Units Tab PO SCH (09:00)
[2025-05-02] MEDS ORDERED: Multivitamins/Minerals TAB PO SCH (09:00)
[2025-05-02] MEDS ORDERED: Lisinopril 20 MG Tab PO SCH (09:00)
[2025-05-02] MEDS ORDERED: Ascorbic Acid 500 MG Tab PO SCH (09:00)
[2025-05-02] MEDS ORDERED: Potassium Chloride 20 MEQ TabCR PO ONE (10:00)
[2025-05-02] MEDS ORDERED: FURO20 PO (13:59)
[2025-05-02] MEDS ORDERED: ASPI81CH PO (14:00)
--- NOTE | 2025-05-02 14:46 | NUR ---
DISCHARGE SUMMARY PT DISCHAGRED HOME WITH HH. [facility] RX [facility] PER PT AND SPOUSE REQUEST. BOTH IV'S REMOVED AND SITES APPEAR WNL. TELE REMOVED/CLEANED AND RETURNED TO PCU. DISCHARGE PACKET REVIEWED WITH PT AND PT SPOUSE, WELL UPDATED MEDICATION LIST. PT WHEELED DOWN TO PRIVATE VEHICLE BY RN, PT ABLE TO STAND AND PIVOT INTO VEHICLE WITHOUT ASSISTANCE.
== END 2025-05-02 15:19 | disposition home health service (06) | DRG 291 ==
LOC: ER 15:36 → MEDS 15:37
PROVIDERS: Emergency Medicine; Family Medicine; ADMIT Internal Medicine
DX: I11.0 Hypertensive heart disease with heart failure (principal); I50.31 Acute diastolic (congestive) heart failure; E87.1 Hypo-osmolality and hyponatremia; K52.9 Noninfective gastroenteritis and colitis, unspecified; E87.6 Hypokalemia; I48.0 Paroxysmal atrial fibrillation; F03.90 Unspecified dementia, unspecified severity, without behavioral disturbance, psychotic disturbance, mood disturbance, and anxiety; K59.09 Other constipation; I08.1 Rheumatic disorders of both mitral and tricuspid valves; I27.20 Pulmonary hypertension, unspecified; R53.81 Other malaise; I70.0 Atherosclerosis of aorta; I25.2 Old myocardial infarction; Z79.811 Long term (current) use of aromatase inhibitors; Z79.899 Other long term (current) drug therapy; Z88.5 Allergy status to narcotic agent; Z88.8 Allergy status to other drugs, medicaments and biological substances; Z98.51 Tubal ligation status; Z90.710 Acquired absence of both cervix and uterus; Z90.89 Acquired absence of other organs
CPT/HCPCS: 36415; 71045; 74177; 80048; 80053; 81003; 83690; 83735; 83880; 84484; 85025; 87507; 93005; 93010; 93306; 96374; 96375; 96376; 97116; 97162; 97530; 99285-25; A9270; G0378; J0696; J1171; J1938; J2405; J3010; J3480; J7050; J7060; Q9967

== ENCOUNTER → 2025-05-21 | Outpatient (CLI) | payer MEDICARE ==
[~2025-05-21] MED LIST changes: +ACETAMINOPHEN500 MG PO; +AMLO10 PO; +ASPI81CH PO; +BIOFREEZE85 GM; +CALCIUM 1,0001 EAC1 PO; +Carvedilol12.5 MG PO; +Carvedilol3.125 MG; +LISI20 PO; +MULTIPLE VITAM1 EACH PO; +PROLIA60 MG/1 ML SQ; +VITAMIN D325 MC3 PO; +Vitamin B Comple1 EA PO
== END ==
LOC: LAB 13:15 → LAB SHORT 13:15
DX: N39.0 Urinary tract infection, site not specified (principal)
CPT/HCPCS: 87077; 87086; 87186

== ENCOUNTER → 2025-09-22 | Outpatient (CLI) | payer MEDICARE ==
[~2025-09-22] MED LIST changes: +AMLO5 PO; +ATOR40TA PO; +CLOP75 PO; +EUTHYROX50 MCG PO; +METO100 PO; +NITR.4SL SL; +RANEXA1000 M1 PO; +UBID10 PO; +magnesium
== END | disposition home or self-care (01) ==
LOC: LAB SHORT 13:17 → LAB 13:17
DX: N39.0 Urinary tract infection, site not specified (principal)
CPT/HCPCS: 87077; 87086; 87186

== ENCOUNTER → 2025-10-03 | Outpatient (CLI) | payer MEDICARE | LOC: LAB 16:14 → LAB SHORT 16:14 | DX: R82.81 Pyuria (principal) | CPT/HCPCS: 87086 ==